=== PATIENT | female | born 1970 | race Caucasian/White ===

== ENCOUNTER 2018-10-19 03:27 | Emergency (ER) | payer OTHER ==
[~2018-10-19] VITALS: Ht 160 cm; Wt 97.1 kg
[2018-10-19 03:34] VITALS: BP 115/94
[2018-10-19 03:47] LABS: Basophils # (auto) 0.1 uL; Basophils % (auto) 0.8 % (0.0-2.0); Eosinophils # (auto) 0.1 uL; Eosinophils % (auto) 0.6 % (0.0-7.0); Hematocrit 44.7 % (36.0-46.0); Hemoglobin 15.4 g/dL (12.2-16.2); Lymphocytes % (auto) 17.9 % (10.0-50.0); Mean Corpuscular Hemoglobin 29.5 pg (28.0-32.0); Mean Corpuscular Hgb Conc. 34.3 g/dL (32.0-36.0); Mean Corpuscular Volume 85.8 fL (80.0-100.0); Monocytes % (auto) 8.7 % (0.0-12.0); Nucleated Red Blood Cells % 0.3 %; Platelet Count (auto) 368 10^3/uL (140-450); Red Blood Cells 5.22 10^6/uL (4.0-5.20); Red Cell Distribution Width 14.3 % (11.8-14.3); White Blood Cell 11.1 10^3/uL (4.4-10.8)
[2018-10-19 04:01] LABS: Urine Amorphous Crystal FEW /hpf (None Seen); Urine Bacteria FEW /hpf (None Seen); Urine Blood Negative /uL (Negative); Urine Mucus FEW (None Seen); Urine Specific Gravity 1.015 (1.001-1.035); Urine WBC 1 /hpf (0 - 5)
[2018-10-19 04:04] LABS: INR 0.98 (0.9-1.15); Partial Thromboplastin Time 24.9 sec (23.64-32.05)
[2018-10-19 04:36] LABS: Alanine Aminotransferase 39 U/L (13-56); Albumin 3.5 g/dL (3.4-5.0); Anion Gap 9 (5-15); Blood Urea Nitrogen 16 mg/dL (7-18); Calcium 8.4 mg/dL (8.5-10.1); Carbon Dioxide 25 mmol/L (21-32); Chloride 96 mmol/L (98-107); Glucose 95 mg/dL (74-106); Potassium 4.5 mmol/L (3.5-5.1); Sodium 130 mmol/L (136-145)
[2018-10-19 04:41] LABS: Alkaline Phosphatase 99 U/L (45-117); Aspartate Aminotransferase 18 U/L (15-37); BUN/Creatinine Ratio 18.6; Bilirubin, Total 0.3 mg/dL (0.2-1.0); GFR African American 91 mL/min; GFR Non-African American 75 mL/min
== END 2018-10-19 09:06 | disposition left against medical advice (07) ==
LOC: ER 03:29
DX: R07.89 Other chest pain (principal); Z53.21 Procedure and treatment not carried out due to patient leaving prior to being seen by health care provider
CPT/HCPCS: 36415; 71046; 80053; 80320; 81001; 84484; 85025; 85610; 85730; 93005

== ENCOUNTER 2019-09-06 21:32 | Emergency (ER) | payer OTHER ==
[~2019-09-06] VITALS: Ht 160 cm; Wt 98.4 kg
[2019-09-06] MEDS ORDERED: SODIUM CHLORIDE 0.9% 1,000 ML IVB ONE (21:51)
[2019-09-06] MEDS ORDERED: MORPHINE SULFATE 4 MG/ML SYR/VIAL IV ONE (22:00)
[2019-09-06] MEDS ORDERED: ONDANSETRON HCL 4 MG/2 ML VIAL IV ONE ×2 (22:00→23:30)
[2019-09-06 22:31] LABS: Basophils # (auto) 0.1 10 ^3/uL (0-0.2); Basophils % (auto) 0.8 % (0.0-2.0); Eosinophils # (auto) 0.1 10 ^3/uL (0-0.8); Eosinophils % (auto) 1.3 % (0.0-7.0); Hematocrit 46.1 % (36.0-46.0); Hemoglobin 15.4 g/dL (12.2-16.2); Lymphocytes % (auto) 27.2 % (10.0-50.0); Mean Corpuscular Hemoglobin 30.1 pg (28.0-32.0); Mean Corpuscular Hgb Conc. 33.4 g/dL (32.0-36.0); Mean Corpuscular Volume 90.2 fL (80.0-100.0); Monocytes # (auto) 1.1 10 ^3/uL (0-1.3); Monocytes % (auto) 10.3 % (0.0-12.0); Neutrophils # (auto) 6.6 10 ^3/uL (1.6-8.6); Neutrophils % (auto) 60.4 % (37.0-80.0); Nucleated Red Blood Cells % 0.1 %; Platelet Count (auto) 294 10^3/uL (140-450); Red Blood Cells 5.11 10^6/uL (4.0-5.20); Red Cell Distribution Width 13.1 % (11.8-14.3); White Blood Cell 10.9 10^3/uL (4.4-10.8)
[2019-09-06 22:46] LABS: Albumin 3.3 g/dL (3.4-5.0); Amylase 36 U/L (25-115); Anion Gap 13 (5-15); Calcium 7.9 mg/dL (8.5-10.1); Carbon Dioxide 20 mmol/L (21-32); Chloride 104 mmol/L (98-107); Glucose 98 mg/dL (74-106); Lipase 167 U/L (73-393); Magnesium 2.4 mg/dL (1.6-2.6); Potassium 3.2 mmol/L (3.5-5.1); Sodium 137 mmol/L (136-145)
[2019-09-06 22:49] LABS: Alanine Aminotransferase 33 U/L (13-56); Aspartate Aminotransferase 17 U/L (15-37); Bilirubin, Total 0.2 mg/dL (0.2-1.0); GFR African American 109 mL/min; GFR Non-African American 90 mL/min; Lactic Acid w/Reflex 2.5 mmol/L (0.4-2.0); Total Protein 6.8 g/dL (6.4-8.2)
[2019-09-06 22:52] LABS: Alkaline Phosphatase 84 U/L (45-117)
[2019-09-06] MEDS ORDERED: IOHEXOL 300 MG/ML 100ML BOTTLE IJ ONE (23:05)
[2019-09-06 23:07] LABS: BUN/Creatinine Ratio 16.4; Blood Urea Nitrogen 12 mg/dL (7-18)
[2019-09-06] MEDS ORDERED: PIPERACILLIN-TAZOB 3.375GM 100 ML IV ONE (23:30)
[2019-09-06] MEDS ORDERED: SODIUM CHLORIDE 0.9% 1,000 ML IV ONE (23:30)
[2019-09-06] MEDS ORDERED: VANCOMYCIN 1GM/250ML 250 ML IV ONE (23:30)
[2019-09-06] MEDS ORDERED: MORPHINE SULF INJ 2 MG/ML SYRINGE 1ML IV ONE (23:30)
[2019-09-07] MEDS ORDERED: PANTOPRAZOLE 40 MG/10 ML VIAL INJ IV ONE (00:15)
[2019-09-07 00:20] LABS: INR 0.99 (0.9-1.15); Partial Thromboplastin Time 26.2 sec (23.64-32.05)
[2019-09-07] MEDS ORDERED: metroNIDAZOLE 500MG/100ML 100 ML IV ONE (00:30)
[2019-09-07 01:37] LABS: Amphetamine Screen, Urine NEGATIVE (NEGATIVE); Barbiturate Scree,Urine NEGATIVE (NEGATIVE); Benzodiazephine Screen, Urine NEGATIVE (NEGATIVE); Cannabinoid Screen, Urine NEGATIVE (NEGATIVE); Cocaine Screen, Urine NEGATIVE (NEGATIVE); Opiate Scree,Urine POSITIVE (NEGATIVE); Phencyclidine Screen, Urine NEGATIVE (NEGATIVE)
[2019-09-07 01:38] LABS: Urine Bacteria FEW /hpf (None Seen); Urine Blood Negative /uL (Negative); Urine Specific Gravity 1.041 (1.001-1.035); Urine WBC <1 /hpf (0 - 5)
[2019-09-07] MEDS ORDERED: POTASSIUM CHL 20 Meq TABLET PO ONE (03:15)
[2019-09-07] MEDS ORDERED: MORPHINE SULF INJ 2 MG/ML SYRINGE 1ML ONE (03:57)
[2019-09-07] MEDS ORDERED: ONDANSETRON HCL 4 MG/2 ML VIAL ONE (03:57)
[2019-09-07] MEDS ORDERED: ONDANSETRON HCL 4 MG/2 ML VIAL IV ONE (04:00)
[2019-09-07] MEDS ORDERED: MORPHINE SULF INJ 2 MG/ML SYRINGE 1ML IV ONE (04:00)
[2019-09-07 06:59] VITALS: BP 108/69
== END 2019-09-07 07:10 | disposition short-term general hospital (02) ==
LOC: EEVIPCON 21:32 → ER 21:32
DX: R10.12 Left upper quadrant pain (principal); E87.6 Hypokalemia; R74.0 Nonspecific elevation of levels of transaminase and lactic acid dehydrogenase [LDH]; R19.7 Diarrhea, unspecified; Z88.2 Allergy status to sulfonamides; Z91.040 Latex allergy status
CPT/HCPCS: 36415; 71045; 74177; 80053; 80307; 80320; 81001; 82150; 83605; 83690; 83735; 84484; 84702; 85025; 85610; 85730; 87040; 93005; 96361; 96365; 96375; 96376; 99285; C9113; J2270; J2405; J3490; Q9967; J2543

== ENCOUNTER 2020-01-01 19:31 | Emergency (ER) | payer OTHER ==
[~2020-01-01] VITALS: Ht 160 cm; Wt 99.8 kg
[2020-01-01 20:39] LABS: Basophils # (auto) 0.1 10 ^3/uL (0-0.2); Basophils % (auto) 0.9 % (0.0-2.0); Eosinophils # (auto) 0.2 10 ^3/uL (0-0.8); Eosinophils % (auto) 2.2 % (0.0-7.0); Hematocrit 47.7 % (36.0-46.0); Hemoglobin 15.3 g/dL (12.2-16.2); Lymphocytes # (auto) 3.4 10 ^3/uL (0.4-5.4); Lymphocytes % (auto) 33.3 % (10.0-50.0); Mean Corpuscular Hemoglobin 28.7 pg (28.0-32.0); Mean Corpuscular Volume 89.7 fL (80.0-100.0); Monocytes # (auto) 0.8 10 ^3/uL (0-1.3); Monocytes % (auto) 7.6 % (0.0-12.0); Neutrophils # (auto) 5.7 10 ^3/uL (1.6-8.6); Nucleated Red Blood Cells % 0.1 %; Platelet Count (auto) 288 10^3/uL (140-450); Red Blood Cells 5.32 10^6/uL (4.0-5.20); Red Cell Distribution Width 13.7 % (11.8-14.3); White Blood Cell 10.2 10^3/uL (4.4-10.8)
[2020-01-01 20:57] LABS: Alanine Aminotransferase 35 U/L (13-56); Albumin 3.5 g/dL (3.4-5.0); Anion Gap 10 (5-15); Aspartate Aminotransferase 21 U/L (15-37); BUN/Creatinine Ratio 20.8; Blood Urea Nitrogen 16 mg/dL (7-18); Calcium 8.2 mg/dL (8.5-10.1); Carbon Dioxide 20 mmol/L (21-32); Chloride 109 mmol/L (98-107); GFR African American 102 mL/min; GFR Non-African American 85 mL/min; Glucose 93 mg/dL (74-106); Potassium 3.8 mmol/L (3.5-5.1); Sodium 139 mmol/L (136-145)
[2020-01-01 20:58] LABS: INR 0.97 (0.9-1.15); Partial Thromboplastin Time 24.8 sec (23.0-31.2)
[2020-01-01 21:02] LABS: Alkaline Phosphatase 95 U/L (45-117); Bilirubin, Total 0.1 mg/dL (0.2-1.0); Total Protein 7.1 g/dL (6.4-8.2)
[2020-01-01] MEDS ORDERED: FOLIC ACID 1 MG, MULTIPLE VITAMIN 10 ML, MAGNESIUM SULF SDV 50% 8 MEQ, THIAMINE INJ 100... INJ STA ×5 (21:05)
[2020-01-01] MEDS ORDERED: LORazepam 2MG/ML-1ML VIAL IV PRN (21:15)
[2020-01-01] MEDS ORDERED: MORPHINE SULFATE 4 MG/ML SYR/VIAL IV ONE (22:00)
[2020-01-01] MEDS ORDERED: ONDANSETRON HCL 4 MG/2 ML VIAL IV ONE (22:00)
[2020-01-01] MEDS ORDERED: diphenhdrAMINE HCL 50 MG/1 ML VL ONE (22:10)
[2020-01-01] MEDS ORDERED: FAMOTIDINE (10MG/ML) 2ML VL IV ONE (23:30)
[2020-01-02 00:07] VITALS: BP 104/59
[2020-01-02 11:14] LABS: Amphetamine Screen, Urine NEGATIVE (NEGATIVE); Barbiturate Scree,Urine NEGATIVE (NEGATIVE); Benzodiazephine Screen, Urine NEGATIVE (NEGATIVE); Cannabinoid Screen, Urine NEGATIVE (NEGATIVE); Cocaine Screen, Urine NEGATIVE (NEGATIVE); Opiate Scree,Urine NEGATIVE (NEGATIVE); Phencyclidine Screen, Urine NEGATIVE (NEGATIVE)
== END 2020-01-02 00:56 | disposition home or self-care (01) ==
LOC: ER 19:31 → EDBD 19:31 → ER 01-02 00:56
DX: K29.20 Alcoholic gastritis without bleeding (principal); F10.920 Alcohol use, unspecified with intoxication, uncomplicated; Z90.49 Acquired absence of other specified parts of digestive tract; Z88.6 Allergy status to analgesic agent; Z88.2 Allergy status to sulfonamides; Z91.040 Latex allergy status
CPT/HCPCS: 36415; 71045; 71250; 74176; 80053; 80307; 80320; 82150; 83690; 83880; 84484; 85025; 85610; 85730; 93005; 96365; 96366; 96375; 99285; J1200; J2060; J2270; J2405; J3411; J3475; J3490; J7030

== ENCOUNTER → 2020-01-04 | Emergency (ER) | payer OTHER ==
[~2020-01-04] VITALS: Ht 162.6 cm; Wt 99.8 kg
[~2020-01-04] MED LIST: ONDANSETRON HCL 4 MG/2 ML VIAL IV ONE; SODIUM CHLORIDE 0.9% 1,000 ML IV ONE; THIAMINE 100mg/ml INJ (200mg/2ml VIAL) ONE; THIAMINE INJ 100 MG in SODIUM CHLORIDE 0.9% 1,000 ML IV ONE
[2020-01-04 23:17] LABS: Urine Amorphous Crystal FEW /hpf (None Seen); Urine Bacteria FEW /hpf (None Seen); Urine Blood Negative /uL (Negative); Urine Specific Gravity 1.008 (1.001-1.035); Urine WBC 2 /hpf (0 - 5)
[2020-01-04 23:30] VITALS: BP 132/90
[2020-01-04 23:34] LABS: Amphetamine Screen, Urine NEGATIVE (NEGATIVE); Barbiturate Scree,Urine NEGATIVE (NEGATIVE); Benzodiazephine Screen, Urine NEGATIVE (NEGATIVE); Cannabinoid Screen, Urine NEGATIVE (NEGATIVE); Cocaine Screen, Urine NEGATIVE (NEGATIVE); Opiate Scree,Urine NEGATIVE (NEGATIVE); Phencyclidine Screen, Urine NEGATIVE (NEGATIVE)
== END | disposition home or self-care (01) ==
LOC: EDUNIT# 20:33 → EDBD 20:46 → ER 20:51
DX: K85.90 Acute pancreatitis without necrosis or infection, unspecified (principal); F10.129 Alcohol abuse with intoxication, unspecified; Z90.49 Acquired absence of other specified parts of digestive tract; Z88.6 Allergy status to analgesic agent; Z88.2 Allergy status to sulfonamides; Z91.040 Latex allergy status; Y90.9 Presence of alcohol in blood, level not specified
CPT/HCPCS: 80307; 81001; 96365; 96375; 99284; J2405